=== PATIENT | male | born 1955 | race Two or more races ===

== ENCOUNTER 2019-10-16 18:06 | Emergency (ER) | payer OTHER ==
[~2019-10-16] VITALS: Ht 182.9 cm; Wt 99.8 kg
[~2019-10-16 18:06] MED LIST: DICLOFENAC POTA50 MG PO; MOBIC15 MG PO; NORFLEX100MG PO; SIMVASTATIN20 MG; SKELAXIN800 MG PO; TOPROL XL25 MG PO
[2019-10-16] MEDS ORDERED: ASPIR 8181 MG (18:26)
[2019-10-16] MEDS ORDERED: LIPITOR40 M1 PO (18:26)
[2019-10-16] MEDS ORDERED: COZAAR100 MG PO (18:26)
[2019-10-16] MEDS ORDERED: MEROPENEM500 MG IV (18:27)
[2019-10-16] MEDS ORDERED: METFORMIN HCL500 M3 (18:28)
[2019-10-16] MEDS ORDERED: BIO-IMMUNEX CA500 MG PO (18:29)
[2019-10-16] MEDS ORDERED: ZITHROMAX200 MG PO (18:30)
[2019-10-16] MEDS ORDERED: SORBUTUSS LIQU474 ML PO (18:30)
== END 2019-10-16 22:36 | disposition home or self-care (01) ==
LOC: ER 18:06
DX: J11.1 Influenza due to unidentified influenza virus with other respiratory manifestations (principal)

== ENCOUNTER 2021-08-20 21:33 | Emergency (ER) | payer OTHER ==
[~2021-08-20] VITALS: Ht 182.9 cm; Wt 99.8 kg
[~2021-08-20 21:33] MED LIST changes: +ASPIR 8181 MG; +BIO-IMMUNEX CA500 MG PO; +COZAAR100 MG PO; +LIPITOR40 M1 PO; +MEROPENEM500 MG IV; +METFORMIN HCL500 M3; +SORBUTUSS LIQU474 ML PO; +ZITHROMAX200 MG PO
== END 2021-08-21 00:04 | disposition home or self-care (01) ==
LOC: ER 21:33
DX: K04.7 Periapical abscess without sinus (principal); E11.9 Type 2 diabetes mellitus without complications; I10 Essential (primary) hypertension; Z79.84 Long term (current) use of oral hypoglycemic drugs